=== PATIENT | male | born 1950 | race Caucasian/White ===

== ENCOUNTER 2020-04-05 06:29 | Outpatient (CLI) | payer MEDICARE ==
[2020-04-05 11:03] LABS: Hemoglobin 12.2 g/dL (14.0-18.0); Mean Corpuscular HGB CONC 30.4 G/DL (32.0-36.0); Mean Corpuscular Hemoglobin 28.3 PG (27.0-33.0); Mean Platelet Volume 10.1 fl (7.4-10.4); Platelet Count 334 10x3/uL (130-400); RBC Distribution Width 15.4 % (11.5-14.5); Red Blood Cell (RBC) Count 4.31 10x6/uL (4.40-5.80); White Blood Cell (WBC) Count 9.8 10x3/uL (4.5-11.0)
[2020-04-05 11:27] LABS: PTT 31.1 sec (22.0-33.0); Prothrombin Time 10.8 sec (9.5-12.1)
[2020-04-05 12:03] LABS: Anion Gap 15 mmol/L (10-20); BUN (Urea Nitrogen) 25 mg/dL (8.4-25.7); Calc. Creatinine Clearance 0 mL/min (70-130); Calcium 8.8 mg/dL (7.8-10.44); Carbon Dioxide 19 mmol/L (23-31); Chloride 109 mmol/L (98-107); Glucose 101 mg/dL (80-115); Potassium 5.3 mmol/L (3.5-5.1); Sodium 138 mmol/L (136-145)
[2020-04-05 20:51] LABS: SARS-CoV-2 MS2 Positive; SARS-CoV-2 N Gene Negative; SARS-CoV-2 S Gene Negative; SARS-CoV-2 by NAA Not Detected (NotDetected); SARS-CoV-2 orf1ab Negative
== END 2020-04-05 06:30 | disposition home or self-care (01) ==
LOC: LABBT 06:29
PROVIDERS: ATTEND Urology
DX: Z01.812 Encounter for preprocedural laboratory examination (principal); Z20.828 Contact with and (suspected) exposure to other viral communicable diseases; D49.4 Neoplasm of unspecified behavior of bladder
CPT/HCPCS: 80048; 85027; 85610; 85730; U0003; 87635

== ENCOUNTER 2020-04-10 09:46 | Day surgery (SDC) | payer MEDICARE ==
[2020-04-07 12:13] VITALS: BMI 20.9
[2020-04-10] MEDS ORDERED: Dexamethasone 20 MG/5 ML VIAL ONE (10:13)
[2020-04-10] MEDS ORDERED: Lidocaine 1% PF 5 ML VIAL ONE (10:13)
[2020-04-10] MEDS ORDERED: PROPOFOL 200 MG/20 ML VIAL ONE (10:13)
[2020-04-10] MEDS ORDERED: ePHEDrine 50 MG/ML VIAL ONE (10:13)
[2020-04-10] MEDS ORDERED: Glycopyrrolate 0.2 MG/ML 5 ML SYRINGE ONE (10:13)
[2020-04-10] MEDS ORDERED: Ondansetron PF 4 MG/2 ML Vial ONE ×2 (10:13→13:32)
[2020-04-10] MEDS ORDERED: PHENYLEPHRINE-NS 100 MCG/ML 10 ML SYRINGE ONE (10:13)
[2020-04-10] MEDS ORDERED: Rocuronium Bromide 10 MG/ML (10ML VIAL) ONE (10:13)
[2020-04-10] MEDS ORDERED: Scopolamine 1.5 mg/72 hour Patch ONE (10:46)
[2020-04-10] MEDS ORDERED: Fentanyl 100 MCG/2 ML VIAL ONE (11:32)
[2020-04-10] MEDS ORDERED: mitoMYcin 40 MG in Sodium Chloride 0.9% 40 ML IV SCH (12:00)
[2020-04-10] MEDS ORDERED: Iothalamate Meglumine 60% 50 ML VIAL FS ONE (12:57)
[2020-04-10] MEDS ORDERED: SUGAMMADEX SODIUM 200 MG/2 ML VIAL ONE (12:57)
--- NOTE | 2020-04-10 13:00 | RAD ---
X-RAY IVP RETROGRADE: DATE: 04/10/2020 12:00 AM. INDICATION: Cystoscopy. COMPARISON: Prior CT the abdomen and pelvis dated February 05, 2017. FINDING: Total images were submitted. The initial images demonstrate a control room operator film and a cystoscope overlying the lower pelvis. There is an aortobiiliac endograft. The bowel gas pattern is unobstructed. Subsequent image demonstrates cannulization of the right renal collecting system without evidence of focal defect or stricture. No hydronephrosis is evident. Subsequent images demonstrate cannulization of the left renal collecting system. Small transient defects are seen within the proxim al left ureter and left renal pelvis which are likely related to air bubbles. Final submitted image demonstrates no significant residual contrast within the renal collecting systems. IMPRESSION: No suspicious obstructing stone or lesion identified within the retrograde opacified renal collecting systems as above. Transcribed Date/Time: 04/10/2020 1:09 PM
[2020-04-10] MEDS ORDERED: HYDROcodone/Acetaminophen 5/325 mg Tablet ONE (14:06)
--- NOTE | 2020-04-10 16:53 | OP ---
DATE OF PROCEDURE: 04/10/2020 PREOPERATIVE DIAGNOSIS: Bladder tumors. POSTOPERATIVE DIAGNOSIS: Bladder tumors. PROCEDURES PERFORMED: 1. Cystoscopy. 2. Transurethral resection of bladder tumor. 3. Bilateral retrograde. 4. Intravesical instillation. ANESTHETIC: General. ESTIMATED BLOOD LOSS: Minimal. FINDINGS: He had 5 areas of bladder tumors. On the posterior wall, he had 2 very small and 1 was adjacent to each other, less than 0.5 cm. He had another 1 about a centimeter each. These were all fulgurated. They were very faint, very pale, and papillary. He had on the posterior wall, about 3 cm, it was large, it was resected. He had 1 on the right wall, that was 2 to 3 cm. This was a patch of papillary tumors, that was resected. A separate one adjacent to that and close to the bladder neck, that was fulgurated, that was about less than 0.5 cm. Retrograde studies were normal. He has a very thin bladder wall. Very, very fine small ureteral orifices. To do the left retrograde, we had to use an angled Glidewire and a Pollack catheter. DRAINS PLACED: a 20-Egyptian Rust catheter. He did have 40 mg of mitomycin-C and 40 mL of sterile saline placed at the end of the case and the catheter plugged. DESCRIPTION OF PROCEDURE: After obtaining written and verbal consent from the patient after receiving IV antibiotics, he was taken to the operating suite. He was placed in supine position on the cystoscopic table. He was given a general anesthetic and oral intubation and then placed in a dorsal lithotomy position, sterilely prepped and draped. Fluoroscopy unit was positioned over him and a coremaker helper was taken. Cystoscopy was performed with a 22-Egyptian sheath. This was well lubricated, passed under direct vision through the male urethra with the aid of a 30-degree lens, video camera, and monitor. Through the male urethra through the prostatic urethra into the urinary bladder, the bladder was filled a number of times. It was examined with both the 30 and 70-degree lens. Going back to the 30 degree lens, a 5-Egyptian cone-tipped catheter was flushed with contrast and was placed in the right ureteral orifice, 8 to 10 mL of contrast were injected in a retrograde manner. No persistent filling defects or obstruction was noted. This side drained well. On the left side, we could not intubate with the cone-tipped catheter, so an angled Glidewire through a Pollack catheter was used to go up that ureter and then the Pollack was placed a centimeter up the ureter and a retrograde study was done on this side and also no filling defects, no obstruction, no abnormality. A little bit of extravasation just at the fornices. This side also drained well. At this point, we brought in the resectoscope sheath with visual obturator and was passed into the bladder and placed his resectoscope with a generator and a 30-degree lens and a bladder loop were used. We resected initially the 2 cm groups of the tumor on the posterior wall, then 2 to 3 cm group for tumor on the right wall, and then we cauterized the other tumors. Each area of tumor was sent as its own specimen. There was good hemostasis. We used the Ventive evacuator after each tumor resection. At the end of the procedure, the instruments were removed. The bladder was drained. A Rust catheter was placed. 15 mL placed in the balloon, 40 mL of the mitomycin-C was placed. Catheter was plugged. He was taken out of the dorsal lithotomy position, awakened, extubated, and taken by [email or web address] to recovery room. Job ID: [id number]
== END 2020-04-10 15:55 | disposition home or self-care (01) ==
LOC: SDC 09:46
PROVIDERS: ATTEND Urology
PROC: 0T5B8ZZ Destruction of Bladder, Via Natural or Artificial Opening Endoscopic (ICD-10-PCS; principal; 2020-04-10)
DX: C67.4 Malignant neoplasm of posterior wall of bladder (principal); K21.9 Gastro-esophageal reflux disease without esophagitis; I10 Essential (primary) hypertension; E78.5 Hyperlipidemia, unspecified; J44.9 Chronic obstructive pulmonary disease, unspecified; G47.30 Sleep apnea, unspecified; D64.9 Anemia, unspecified; F17.200 Nicotine dependence, unspecified, uncomplicated; M19.90 Unspecified osteoarthritis, unspecified site; Z79.899 Other long term (current) drug therapy; Z88.1 Allergy status to other antibiotic agents; Z88.2 Allergy status to sulfonamides; Z88.5 Allergy status to narcotic agent
CPT/HCPCS: 52235; 74420; 88305; 93005; J9280; 93010; J0690; J1100; J2405; J2704; J3010; J3490

== ENCOUNTER 2023-08-26 10:31 | Outpatient (CLI) | payer MEDICARE ==
[2023-08-26 12:24] LABS: Hemoglobin 12.6 g/dL (13.5-17.5); Mean Corpuscular HGB CONC 32.3 g/dL (32.0-36.0); Mean Corpuscular Hemoglobin 30.1 pg (27.0-33.0); Mean Corpuscular Volume 93.1 fl (81.2-95.1); Mean Platelet Volume 9.5 fl (7.4-10.4); Platelet Count 258 10x3/uL (150-450); RBC Distribution Width 15.5 % (11.5-14.5); Red Blood Cell (RBC) Count 4.19 10x6/uL (4.32-5.72)
[2023-08-26 12:32] LABS: Anion Gap 11 mmol/L (10-20); BUN (Urea Nitrogen) 47 mg/dL (8.4-25.7); Calc. Creatinine Clearance 0 mL/min (70-130); Calcium 9.1 mg/dL (7.8-10.44); Carbon Dioxide 20 mmol/L (23-31); Chloride 110 mmol/L (98-107); Estimated GFR 25; Glucose 88 mg/dL (83-110); Potassium 5.3 mmol/L (3.5-5.1); Sodium 136 mmol/L (136-145)
[2023-08-26 12:33] LABS: PTT 28.8 sec (22.0-33.0); Prothrombin Time 10.6 sec (9.5-12.1)
== END 2023-08-26 10:32 | disposition home or self-care (01) ==
LOC: LABBT 10:31
PROVIDERS: ATTEND Urology
DX: Z01.818 Encounter for other preprocedural examination (principal); N32.9 Bladder disorder, unspecified; Z85.51 Personal history of malignant neoplasm of bladder; Z79.899 Other long term (current) drug therapy
CPT/HCPCS: 80048; 85027; 85610; 85730; 87086; 93005; 93010

== ENCOUNTER 2023-09-02 08:47 | Day surgery (SDC) | payer MEDICARE ==
[2023-09-02] MEDS ORDERED: PROPOFOL 20 ML ONE (10:28)
[2023-09-02] MEDS ORDERED: Rocuronium Bromide 10 MG/ML (10ML VIAL) ONE (10:29)
[2023-09-02] MEDS ORDERED: Iopamidol 15 ML ONE (10:43)
[2023-09-02] MEDS ORDERED: CEFAZOLIN 2 GM VIAL ONE (11:02)
[2023-09-02] MEDS ORDERED: Sodium Chloride 0.9% 100 ML ONE (11:03)
[2023-09-02] MEDS ORDERED: Famotidine/PF 20 mg/2ml Vial ONE (11:24)
[2023-09-02] MEDS ORDERED: Lidocaine 2% PF 5 ML VIAL ONE (11:27)
[2023-09-02] MEDS ORDERED: fentaNYL 50 mcg/mL 1 mL Vial ONE ×2 (11:28→12:02)
[2023-09-02] MEDS ORDERED: mitoMYcin 40 MG in Sodium Chloride 0.9% 40 ML I-VESIC SCH (11:45)
[2023-09-02] MEDS ORDERED: PHENYLEPHRINE-NS 100 MCG/ML 10 ML SYRINGE ONE (11:45)
[2023-09-02] MEDS ORDERED: ePHEDrine Sulfate 50 MG/10 ML VIAL ONE (11:46)
[2023-09-02] MEDS ORDERED: Dexamethasone 4 mg/ml Vial ONE (12:00)
[2023-09-02] MEDS ORDERED: Ondansetron PF 4 MG/2 ML Vial ONE (12:00)
[2023-09-02] MEDS ORDERED: SUGAMMADEX SODIUM 200 MG/2 ML VIAL ONE (12:03)
== END 2023-09-02 14:47 | disposition home or self-care (01) ==
LOC: SDC 08:47
PROVIDERS: ATTEND Urology
PROC: 0TBB8ZZ Excision of Bladder, Via Natural or Artificial Opening Endoscopic (ICD-10-PCS; principal; 2023-09-02)
DX: C67.5 Malignant neoplasm of bladder neck (principal); J44.9 Chronic obstructive pulmonary disease, unspecified; I10 Essential (primary) hypertension; Z88.1 Allergy status to other antibiotic agents; Z88.2 Allergy status to sulfonamides; Z88.5 Allergy status to narcotic agent; Z88.8 Allergy status to other drugs, medicaments and biological substances; Z91.041 Radiographic dye allergy status; Z86.73 Personal history of transient ischemic attack (TIA), and cerebral infarction without residual deficits; Z79.899 Other long term (current) drug therapy
CPT/HCPCS: 52235; 74420; J3010; J9280; 88305; J1100; J2001; J2405; J2704; J3490; Q9967; S0028